=== PATIENT | female | born 1950 | race African-American/Black ===

== ENCOUNTER → 2016-08-21 07:40 | Outpatient (CLI) | payer BC | LOC: D.MAMMO 07:40 | DX: Z12.31 Encounter for screening mammogram for malignant neoplasm of breast (principal) ==

== ENCOUNTER 2017-09-24 19:00 | Outpatient (CLI) | payer BC | END 2017-09-24 23:59 | disposition home or self-care (01) | LOC: D.MAMMO 19:00 | DX: Z12.31 Encounter for screening mammogram for malignant neoplasm of breast (principal) ==

== ENCOUNTER → 2018-01-23 08:55 | Outpatient (CLI) | payer BC ==
--- NOTE | ~2018-01-23 | ST ---
PATIENT:SANTI CANALES MEDICAL RECORD: [id number] SEX: F LOCATION:[facility] ORDER #: ADMISSION DATE: 01/23/18 AGE OF PATIENT: 68 REFERRING PHYSICIAN: INTERPRETING PHYSICIAN: ALEXIS WICK MD DATE OF SERVICE: 01/23/2018 PROCEDURE: Nuclear stress test. INDICATION: Shortness of breath and chest pain of unknown etiology. PROCEDURE DETAIL: She was exercised on standard [place] protocol for 7 minutes achieving 85% max target heart rate response with 33 mCi of sestamibi injected at peak stress and 11 mCi were used previously for rest images. FINDINGS: 1. Gated SPECT was not able to be performed secondary to dysrhythmia. 2. SPECT imaging: Cardiolite was used as myocardial perfusion agent. There is reversibility throughout the inferior segments. This includes the basal, mid, apical, inferior segments as well as the apex itself. The degree of reversibility is mild. The amount of myocardial involved is moderate. OVERALL IMPRESSION: This is an abnormal nuclear stress test with reversibility throughout and moderate amount of myocardium inferiorly and apically suggestive of hemodynamically significant coronary artery disease. We would proceed with coronary angiography as a followup study. TRANSINT:[id number] Voice Confirmation ID: [id number] DOCUMENT ID: [id number] ALEXIS WICK MD at 1025 CC: [id number] DICTATION DATE: 01/24/18 1242 MOTOR MAN: 01/25/18 0328 DEP CLI 01/23/18 [place] [id number] [place] [id number]
== END | disposition home or self-care (01) ==
LOC: D.HCCARDIO 08:55
DX: R06.02 Shortness of breath (principal); R07.9 Chest pain, unspecified

== ENCOUNTER 2018-12-26 09:00 | Outpatient (CLI) | payer BC | END 2018-12-26 10:00 | disposition home or self-care (01) | LOC: D.MAMMO 09:00 | PROVIDERS: ATTEND Emergency Medicine | DX: Z12.31 Encounter for screening mammogram for malignant neoplasm of breast (principal) ==